=== PATIENT | female | born 1990 | race African-American/Black ===

== ENCOUNTER 2024-05-26 05:56 | Emergency (ER) | payer SELFPAY ==
[2024-05-26 06:35] VITALS: TEMP 98.4; BMI 26.6
[2024-05-26 08:43] LABS: BASO % 0.6 % (0-2.0); EOS % 0.4 % (0-4.5); HEMATOCRIT 35.5 % (32.4-45.2); HEMOGLOBIN 10.9 GM/dL (10.7-15.3); LYMPH % 31.5 % (8-40); MCH 21.4 pg (25.7-33.7); MCHC 30.8 g/dl (32.0-36.0); MEAN CELL VOLUME 69.4 fl (80-96); MEAN PLT VOLUME 9.2 fl (7.5-11.1); MONO % 8.2 % (3.8-10.2); NEUT % 59.3 % (42.8-82.8); PLATELET COUNT 200 10^3/uL (134-434); RBC 5.12 M/mm3 (3.60-5.2); RDW 16.8 % (11.6-15.6); WHITE BLOOD COUNT 5.4 K/mm3 (4.0-10.0)
[2024-05-26 08:50] LABS: CHLORIDE 108 mmol/L (98-107); SODIUM 140 mmol/L (136-145)
[2024-05-26 08:54] LABS: ALBUMIN 3.3 g/dl (3.4-5.0); ANION GAP 5 mmol/L (4-13); BLOOD UREA NITROGEN 15.5 mg/dL (7-18); CALCIUM 8.5 mg/dL (8.5-10.1); CO2 26 mmol/L (21-32); GLUCOSE,RANDOM 83 mg/dL (74-106)
[2024-05-26 08:57] LABS: CREATININE 0.8 mg/dL (0.55-1.3); SGOT/AST 31 U/L (15-37); SGPT/ALT 36 U/L (13-61)
[2024-05-26 08:59] LABS: BILIRUBIN,TOTAL 0.4 mg/dL (0.2-1); TOT PROT 6.6 g/dl (6.4-8.2)
[2024-05-26 09:00] LABS: ALK PHOS 104 U/L (45-117)
[2024-05-26 10:17] LABS: ANISOCYTOSIS 2+; MACROCYTOSIS 0
[2024-05-26 17:54] VITALS: BP 110/60; PULSE 70; RESP 15
== END 2024-05-26 18:24 | disposition home or self-care (01) ==
LOC: JER 05:56
DX: R45.851 Suicidal ideations (principal); Z20.822 Contact with and (suspected) exposure to COVID-19
CPT/HCPCS: 0241U-QW; 36415; 80053; 80307; 84443; 85025; 87651; 99283-25